=== PATIENT | male | born 1935 | race Caucasian/White ===

== ENCOUNTER → 2017-09-27 | Outpatient (CLI) | payer MEDICARE ==
[~2017-09-27] MED LIST: ASPI-621 PO; CLOP75TA52 PO; GLIP10TA13 PO; LINA5TAB PO; LOSA50TA2 PO; LOSA50TA6 PO; LOVA40TA2 PO
== END | disposition home or self-care (01) ==
LOC: RAD 12:50
PROVIDERS: ATTEND Family Medicine
DX: M79.89 Other specified soft tissue disorders (principal)

== ENCOUNTER → 2020-03-14 | Outpatient (CLI) | payer MEDICARE ==
[~2020-03-14] MED LIST changes: -ASPI-621 PO; +ASPI81TA45 PO; +LOSA50TA14 PO; -LOSA50TA6 PO
== END | disposition home or self-care (01) ==
LOC: CFH 08:21
PROVIDERS: ATTEND Family Medicine
DX: N20.1 Calculus of ureter (principal); N13.30 Unspecified hydronephrosis; N40.0 Benign prostatic hyperplasia without lower urinary tract symptoms; R10.30 Lower abdominal pain, unspecified; R19.09 Other intra-abdominal and pelvic swelling, mass and lump; J98.4 Other disorders of lung; N32.89 Other specified disorders of bladder
CPT/HCPCS: 74176

== ENCOUNTER 2020-04-19 22:29 | Emergency (ER) | payer MEDICARE ==
[~2020-04-19] VITALS: Ht 177.8 cm; Wt 67.6 kg
[2020-04-19 23:15] LABS: BASOPHILS # (AUTO) 0.05 x10^3/uL (0-0.1); BASOPHILS % (AUTO) 1 % (0-1); EOSINOPHILS # (AUTO) 0.22 x10^3/uL (0-0.4); EOSINOPHILS % (AUTO) 2 % (1-7); LYMPHOCYTES # (AUTO) 1.98 x10^3/uL (1-3.4); LYMPHOCYTES % (AUTO) 22 % (22-44); MD NO; MEAN CORPUSCULAR HEMOGLOBIN 29.8 pg (27.5-34.5); MEAN CORPUSCULAR HGB CONC 32.5 g/dL (33.2-36.2); MEAN CORPUSCULAR VOLUME 91.8 fL (81-97); MONOCYTES # (AUTO) 0.93 x10^3/uL (0.2-0.8); MONOCYTES % (AUTO) 10 % (2-9); NEUTROPHILS # (AUTO) 5.99 x10^3/uL (1.8-6.8); NEUTROPHILS % (AUTO) 65 % (42-75); PLATELET COUNT 205 x10^3/uL (130-400); RED BLOOD COUNT 4.22 x10^6/uL (4.38-5.82); RED CELL DISTRIBUTION WIDTH 14.2 % (9.4-14.8)
[2020-04-19 23:17] LABS: ANION GAP 9 mmol/L (5-15); CALCIUM 9.5 mg/dL (8.5-10.1); CHLORIDE 108 mmol/L (98-107); CREATININE 2.18 mg/dL (0.7-1.3)
--- NOTE | 2020-04-20 00:47 | NUR ---
Pt to room
--- NOTE | 2020-04-20 00:53 | NUR ---
PT CAME INTO ED TONIGHT DUE TO "CATHETER SPRANG A LEAK" PT REPORTS CHANGING OUT BAG AND STILL LEAKING, REPORTS SOME BLOOD IN THE URINE WELL. PT NAD, CATH HAS BEEN IN SINCE MID MARCH. GIVEN WARM BLANKETS FOR COMFORT. PT PLACED ON SPO2/BP MONITORING.
[2020-04-20] MEDS ORDERED: LOSA25TA25 PO (00:55)
[2020-04-20] MEDS ORDERED: TAMS-11 PO (00:59)
--- NOTE | 2020-04-20 01:00 | NUR ---
PT HAS [address], PT WAS BLEEDING FROM PENIS TIP AND TUBING HAD A HOLE. PT TAPED HOLE AT HOME TO SOLVE ISSUE.
--- NOTE | 2020-04-20 01:59 | NUR ---
FIRST ARMENTA UNABLE TO GET URINE BACK FLOW. RN GRABBED A COUDE TIP ARMENTA TO PLACE AT THIS ITME. PT RESTIN CICI GOLDBERG, NAD, DENIES ADDITIONAL NEEDS, APPEARS COMFORTABLE, AT BS. WCTM.
--- NOTE | 2020-04-20 02:44 | NUR ---
PT ARMENTA SET, TOLERATED WELL, NAD, UA SENT TO LAB, DENIES ADDITIONAL NEEDS WCTM.
[2020-04-20 03:29] LABS: MICROSCOPIC INDICATED
[2020-04-20 04:16] VITALS: BP 115/62
--- NOTE | 2020-04-20 04:16 | NUR ---
Patient given discharge instructions and they have confirmed that they understand the instructions. Patient ambulatory with steady gait. DENIES ADDITIONAL NEEDS OR QUESTIONS AT THIS TIME. NAD, NO BELONGINGS LEFT IN ROOM AFER DC.
== END 2020-04-20 04:18 | disposition home or self-care (01) ==
LOC: ED 04-20 03:15
DX: N30.01 Acute cystitis with hematuria (principal); R00.0 Tachycardia, unspecified; E11.9 Type 2 diabetes mellitus without complications; I10 Essential (primary) hypertension
CPT/HCPCS: 36415; 51702; 80048; 81001; 85025; 87077; 87086; 87186; 99285

== ENCOUNTER 2020-04-22 01:33 | Emergency (ER) | payer MEDICARE ==
[~2020-04-22] VITALS: Ht 177.8 cm; Wt 68.0 kg
[~2020-04-22 01:33] MED LIST changes: +LOSA25TA25 PO; +TAMS-11 PO
[2020-04-22 01:37] VITALS: BP 108/53
== END 2020-04-22 02:43 | disposition home or self-care (01) ==
LOC: ED 01:45
DX: R33.9 Retention of urine, unspecified (principal); I10 Essential (primary) hypertension; E11.9 Type 2 diabetes mellitus without complications
CPT/HCPCS: 51702; 99284